=== PATIENT | male | born 1940 | race Caucasian/White ===

== ENCOUNTER 2016-06-27 07:23 | Day surgery (SDC) | payer OTHER ==
[~2016-06-27] VITALS: Ht 172.7 cm; Wt 72.6 kg
[~2016-06-27 07:23] MED LIST: ASPIRIN81 M1; CLONIDINE1 EACH TD; CRESTOR20 MG; DURAGESIC50 MCG TD; FISH OIL 1,2001 EAC3; LASIX40 MG PO; LO-DOSE ASPIRIN81 M2 PO; MARTINIC1 EACH; NORVASC5 MG; PLAVIX75 MG PO; REPATHA SU140 MG/1 M SC; VITAMIN B-122500 MCG SL; ZESTRIL,PRINIVI20 MG
[2016-06-27 08:51] VITALS: BP 137/75
[2016-06-27 14:17] VITALS: BP 137/63
[2016-06-27 15:30] VITALS: BP 118/70
== END 2016-06-27 16:00 | disposition home or self-care (01) ==
LOC: SDC 07:23
DX: M84.58XA Pathological fracture in neoplastic disease, other specified site, initial encounter for fracture (principal); M54.9 Dorsalgia, unspecified; I10 Essential (primary) hypertension; Z86.73 Personal history of transient ischemic attack (TIA), and cerebral infarction without residual deficits; Z88.8 Allergy status to other drugs, medicaments and biological substances
CPT/HCPCS: 72100; 76000; J0131; J0330; J0690; J1100; J2405; J2710; J3010

== ENCOUNTER 2016-07-03 04:42 | Observation (INO) | payer OTHER ==
[~2016-07-03] VITALS: Ht 172.7 cm; Wt 77.8 kg
[2016-07-03] MEDS ORDERED: ENEMA READY-TO133 ML PR (05:49)
[2016-07-03 07:31] LABS: HEMATOCRIT 41.3 % (38.0-50.0); MCH 30.2 PG (29.0-34.0); MCHC 32.4 G/DL (30.0-36.0); MCV 93.2 FL (86-99); MEAN PLAT.VOLUME 8.5 uM^3 (9.0-12.4); NRBC (%) 0.5 /100 WBC (0-0); PLATELET COUNT 129 K/uL (156-360); RBC DIS.WIDTH-CV 20.4 % (11.8-14.6); RBC DIS.WIDTH-SD 68.5 % (39-53); RED BLOOD COUNT 4.43 M/uL (4.00-5.50); WHITE BLOOD COUNT 11.1 K/uL (4.1-10.2)
[2016-07-03 07:40] LABS: POTASSIUM 4.4 mEq/L (3.7-5.4); SODIUM 137 mEq/L (136-147)
[2016-07-03 07:43] LABS: GLUCOSE 105 mg/dL (70-99)
[2016-07-03 07:44] LABS: ANION GAP 17 MEQ/L (2-14)
[2016-07-03 07:45] LABS: TOTAL BILIRUBIN 1.9 mg/dL (0.0-1.0)
[2016-07-03 07:46] LABS: ALKALINE PHOSPHATASE 446 IU/L (3-129); GFR ESTIMATE (CALCULATED) > 59 mL/min/
[2016-07-03 07:47] LABS: UREA NITROGEN (BUN) 28 mg/dL (9-23)
[2016-07-03 07:50] LABS: LIPASE 59 U/L (1.0-51.0)
[2016-07-03 08:00] LABS: ADD MIUA? YES; BILIRUBIN NEGATIVE; BLOOD LARGE; COLOR AMBER ((YELLOW)); GLUCOSE (STRIP) NEGATIVE; KETONES NEGATIVE; LEUKOCYTES NEGATIVE; NITRITE NEGATIVE; PROTEIN (STRIP) 30; SPECIFIC GRAVITY 1.017 (1.000-1.030); UROBILINOGEN 0.2 MG/DL (0.2-1.0)
[2016-07-03 08:08] LABS: CHLORIDE 93 mEq/L (99-109)
[2016-07-03 08:20] LABS: BACTERIA RARE /HPF; CASTS NONE SEEN /LPF; CRYSTALS NONE SEEN; EPITHELIAL CELLS RARE /HPF; MUCUS RARE /LPF; RED BLOOD CELLS TNTC /HPF (0-5); UCUL ADDED? NO; WHITE BLOOD CELLS NONE SEEN /HPF (0-5)
[2016-07-03 14:12] VITALS: BP 118/64
[2016-07-03 20:46] VITALS: BP 109/59
[2016-07-04 00:10] VITALS: BP 103/60
[2016-07-04 03:38] VITALS: BP 107/56
[2016-07-04 06:59] LABS: ANION GAP 14 MEQ/L (2-14); CHLORIDE 100 MEQ/L (99-109); GFR ESTIMATE (CALCULATED) > 59 mL/min/; POTASSIUM 3.7 MEQ/L (3.7-5.4); SAMPLE HEMOLYSIS CHECK 0; SAMPLE ICTERIC CHECK 0; SAMPLE LIPEMIA CHECK 0; SODIUM 139 MEQ/L (136-147); UREA NITROGEN (BUN) 22 mg/dL (9-23)
[2016-07-04 07:02] LABS: MCH 30.7 PG (29.0-34.0); MCHC 32.1 G/DL (30.0-36.0); MCV 95.7 FL (86-99); NRBC (%) 0.3 /100 WBC (0-0); RBC DIS.WIDTH-CV 20.5 % (11.8-14.6); RBC DIS.WIDTH-SD 69.7 % (39-53)
[2016-07-04 07:03] LABS: RED BLOOD COUNT 3.45 M/uL (4.00-5.50)
[2016-07-04 07:04] LABS: MEAN PLAT.VOLUME 8.7 uM^3 (9.0-12.4); PLAT.SUFFICIENCY DECREASED
[2016-07-04 07:05] LABS: GLUCOSE 72 mg/dL (70-99)
[2016-07-04 07:22] LABS: PLATELET COUNT 90 K/uL (156-360)
[2016-07-04 08:21] VITALS: BP 124/63
[2016-07-04] MEDS ORDERED: CLOPIDOGREL 5 MG/ML PO (11:55)
[2016-07-04 12:02] VITALS: BP 131/74
[2016-07-04] MEDS ORDERED: MILK OF MAGNESI10 ML PO (15:07)
[2016-07-04] MEDS ORDERED: BISAC-EVAC10 MG PR (15:07)
[2016-07-04] MEDS ORDERED: DOCU LIQUI50 MG/5 ML PO (15:07)
[2016-07-04] MEDS ORDERED: SENNA8.8 MG/5 M PO (15:09)
[2016-07-04 16:46] VITALS: BP 143/81
== END 2016-07-04 19:08 | disposition home or self-care (01) ==
LOC: EME 04:42 → EDOF 12:15 → 3EAST 12:15
PROVIDERS: Emergency Medicine; Internal Medicine
DX: K59.00 Constipation, unspecified (principal); T40.605A Adverse effect of unspecified narcotics, initial encounter; E87.2 Acidosis; E86.0 Dehydration; C85.90 Non-Hodgkin lymphoma, unspecified, unspecified site; G89.3 Neoplasm related pain (acute) (chronic); I10 Essential (primary) hypertension; K44.9 Diaphragmatic hernia without obstruction or gangrene; I25.10 Atherosclerotic heart disease of native coronary artery without angina pectoris; E78.5 Hyperlipidemia, unspecified; Z86.73 Personal history of transient ischemic attack (TIA), and cerebral infarction without residual deficits
CPT/HCPCS: 71010; 74022; 74177; 80048; 80053; 81003; 83605; 83690; 85027; 87040; 99281; 99285; G0378; J1650; J2405; J2543; J3370; J7030; J7050